=== PATIENT | female | born 1995 ===

== ENCOUNTER → 2019-02-13 | Day surgery (SDC) | payer OTHER ==
--- NOTE | 2019-02-13 13:58 | RADIOLOGY REPORT (SQ) ---
EXAM DESCRIPTION: ARTHRO HIP INJ W/ANESTHESIA; FLUORO/NEEDLE PLACEMENT COMPLETED DATE/TIME: 02/13/2019 9:52 am; 02/13/2019 9:51 am REASON FOR STUDY: RIGHT HIP PAIN M25.551 PAIN IN RIGHT HIP COMPARISON: None. FLUOROSCOPY TIME: 16 seconds. 1 image submitted to PACS. LIMITATIONS: None. PROCEDURE: Procedure, risks, benefits and alternatives explained to patient who then gave written co nsent. The right hip was marked and a time-out was called for correct marking verification. Entry s ite marked using fluoroscopic guidance. Hip prepped and draped using sterile technique. Local anest hesia achieved using 1% lidocaine injection. Hypodermic needle introduced into the joint space under direct fluoroscopic visualization. Non-ionic contrast instilled to confirm intra-articular position. Dilute gadolinium solution then injected. Needle removed and entry site covered with sterile band age. No immediate complications noted. TECHNIQUE: Digital images acquired during fluoroscopy and stored on PACS. Patient immediately take n to the MR suite for additional imaging. INJECTION LOCATION: Right femoroacetabular joint. CONTRAST TYPE AND AMOUNT: 8 mL Dotarem/Saline mixture. IMPRESSION: SUCCESSFUL NEEDLE PLACEMENT AND INJECTION FOR RIGHT HIP MR ARTHROGRAM. COMMENT: Quality ID [id number]: Final reports for procedures using fluoroscopy that document radiation exp osure indices, or exposure time and number of fluorographic images (if radiation exposure indices are not available) TECHNICAL DOCUMENTATION: JOB ID: [id number] [employer]- All Rights Reserved Reading location - IP/workstation name: [email or web address]
--- NOTE | 2019-02-13 15:16 | RADIOLOGY REPORT (SQ) ---
EXAM DESCRIPTION: MRI RT LOWER JOINT WITH COMPLETED DATE/TIME: 02/13/2019 10:08 am REASON FOR STUDY: RT HIP PAIN M25.551 PAIN IN RIGHT HIP COMPARISON: None. TECHNIQUE: Post arthrogram imaging of the right hip is performed using T1 and T1 and T2 fat saturate d sequences of the pelvis and specific hip of interest. LIMITATIONS: None. FINDINGS: RIGHT HIP: JOINT DISTENSION: Adequate. No loose body. BONE MARROW: No edema. No marrow replacement. FEMORAL HEAD, NECK, AND ACETABULUM: No occult fracture. No osteophytes or subchondral cysts. Normal s phericity of femoral head/neck junction. No acetabular dysplasia. No evidence of femoroacetabular imp ingement. LABRUM AND CARTILAGE: No labral tear. Cartilage of normal thickness without delamination. NON ARTHROGRAM IMAGING OF THE LEFT HIP: No joint effusion. Normal bone marrow signal in the femoral head. No significant left hip joint space narrowing. No trochanteric bursa inflammation. PUBIC RAMI AND ISCHIUM: No occult fracture. SACRUM AND ONEIDA: SI joints normal in signal. No occult fracture. EFFUSIONS: None. MUSCLES AND SOFT TISSUES: Adductors and piriformis normal. Abductors and greater trochanteric bursa n ormal without edema or fluid. Iliopsoas bursa without fluid. Hamstring attachments without edema or t ear. PELVIC SOFT TISSUES: No masses or adenopathy. SCIATIC NERVE: Identified without masses. OTHER: No other significant finding. IMPRESSION: NORMAL MRI ARTHROGRAM OF THE RIGHT HIP. TECHNICAL DOCUMENTATION: JOB ID: [id number] [employer]- All Rights Reserved Reading location - IP/workstation name: [email or web address]
== END ==
LOC: RAD 08:43
PROVIDERS: ATTEND Preventive Medicine Aerospace Medicine
DX: M25.551 Pain in right hip (principal)
CPT/HCPCS: 73722; 77002; 27095; A9576